=== PATIENT | female | born 1965 | race Two or more races ===

== ENCOUNTER 2019-11-19 01:25 | Emergency (ER) | payer SELFPAY ==
[~2019-11-19] VITALS: Ht 162.6 cm; Wt 100.2 kg
[2019-11-19 01:31] VITALS: Ht 162.6 cm; Wt 100.2 kg
[2019-11-19 02:55] VITALS: BP 126/84
== END 2019-11-19 02:55 | disposition home or self-care (01) ==
LOC: ED 01:25
DX: R06.00 Dyspnea, unspecified (principal); E11.9 Type 2 diabetes mellitus without complications; Z88.8 Allergy status to other drugs, medicaments and biological substances
CPT/HCPCS: 82962

== ENCOUNTER 2019-11-19 16:01 | Emergency (ER) | payer SELFPAY ==
[~2019-11-19] VITALS: Ht 162.6 cm; Wt 99.8 kg
[2019-11-19 16:12] VITALS: Ht 162.6 cm; Wt 99.8 kg
[2019-11-19 16:27] VITALS: BP 130/82
== END 2019-11-19 16:27 | disposition home or self-care (01) ==
LOC: ED 16:01
DX: Z76.0 Encounter for issue of repeat prescription (principal)